=== PATIENT | female | born 1990 | race American Indian/Alaskan Native ===

== ENCOUNTER 2017-09-14 08:53 | Emergency (ER) | payer SELFPAY ==
[2017-09-14 10:06] LABS: Basophils % (Auto) 0.6 % (0.0-1.8); Eosinophils # (Auto) 0.1 K/mm3 (0.0-0.4); Eosinophils % (Auto) 2.4 % (0.0-4.3); Hemoglobin 10.7 gm/dl (10.1-14.3); Lymphocytes % (Auto) 36.4 % (13.4-35.0); Mean Corpuscular HGB Conc 32 % (30-34); Mean Corpuscular Hemoglobin 27 pg (28-32); Mean Corpuscular Volume 83 fl (79-97); Monocytes # (Auto) 0.4 K/mm3 (0.0-0.8); Monocytes % (Auto) 6.6 % (0.0-7.3); Platelet Count 345 K/mm3 (140-440); Red Blood Count 3.96 M/mm3 (3.65-5.03); Red Cell Distribution Width 17.7 % (13.2-15.2)
[2017-09-14 10:23] LABS: Alanine Aminotransferase 13 units/L (7-56); Albumin 4.3 g/dL (3.9-5); BUN/Creatinine Ratio 10; Blood Urea Nitrogen 6 mg/dL (7-17); Calcium 8.8 mg/dL (8.4-10.2); Hemolysis Index 7
[2017-09-14 10:25] LABS: Bilirubin,Urine NEG (Negative); Blood,Urine LG (Negative); Color,Urine Red (Yellow); Nitrite,Urine NEG (Negative); Protein,Urine <15 mg/dL mg/dL (Negative); Urobilinogen,Urine < 2.0 mg/dL (<2.0)
[2017-09-14 10:26] LABS: RBC,Urine > 182.0 /HPF (0.0-6.0)
--- NOTE | 2017-09-14 12:02 | Emergency Department Report ---
Blank Doc - Documentation Documentation: Patient is a 27-year-old Bonnie female who is coming in with 2 days of left sided flank discomfort. Patient is on her menses. The patient states she' s had some discomfort with her bowel movements and states that her stool has a very small in caliber. Patient states she is straining to have bowel movements however the stool is does not appear hard. Patient denies any other symptoms there is no dysuria hematuria nausea vomiting or weight loss. Patient is worried that she may have colon cancer. Patient most likely has some residual stool present in the sigmoid colon and rectum. I will order an x-ray just to rule out any abnormalities and patient will be followed with P
--- NOTE | 2017-09-14 12:06 | Emergency Department Report ---
ED Abdominal Pain HPI - General Chief Complaint: Abdominal Pain Stated Complaint: ABD PAIN Time Seen by Provider: 09/14/17 11:55 Source: patient, family Mode of arrival: Ambulatory Limitations: No Limitations - History of Present Illness Initial Comments: Patient is a 27-year-old Bonnie female who is coming in with 2 days of left sided flank discomfort. Patient is on her menses. The patient states she' s had some discomfort with her bowel movements and states that her stool has a very small in caliber. Patient states she is straining to have bowel movements however the stool is does not appear hard. Patient denies any other symptoms there is no dysuria hematuria nausea vomiting or weight loss. Patient is worried that she may have colon cancer.l She says she is worried about colon cancer. Patient blood pressure is elevated and she says she is on losartan but she did not take it today. She says she has anxiety about her health and she is a hypochondriac. Denies any nausea or vomiting. Denies any abdominal pain. It was stated on triage note the patient was having pain in her left lower quadrant but patient said the pain is in her left flank and it's 4-10 and dull. No medication taken. She says her diet is not the best and that she goes everyday but she noted for the last 2 days that her stool has changed. Patient denies any personal history of cancer or family history of cancer. Denies any hemorrhoids. Denies any fever or chills. Denies any urinary burning but she says she has some urgency and frequency. MD Complaint: flank pain, other (change in stool) Onset/Timin -: days(s) Location: L flank Radiation: none Migration to: no migration Severity scale (0 -10): 4 Quality: dull Consistency: intermittent Improves With: nothing Worsens With: nothing Context: other (unknown. She thinks she has colon cancer) Associated Symptoms: other (urinary urgency and frequency). denies: nausea, vomiting, diarrhea, fever, chills, constipation, dysuria, hematemesis, hematochezia, melena, hematuria, anorexia, syncope Treatments Prior to Arrival: other (none) - Related Data LMP Date: 09/14/17 Previous Rx's Medication Instructions Recorded Last Taken Type ALBUTEROL Inhaler [ProAir HFA 2 puff IH QID PRN #1 inhalation 12/04/13 Unknown Rx Inhaler] Azithromycin [Zithromax Z-BENTON] 250 mg PO DAILY #6 tablet 12/04/13 Unknown Rx Prednisone [Prednisone 10 mg 10 mg PO .TAPER #1 tab.ds.pk 12/04/13 Unknown Rx (6-Day Pack, 21 Tabs)] Nitrofurantoin Monohyd/M-Cryst 100 mg PO Q12H 5 Days #10 capsule 09/14/17 Unknown Rx [Macrobid 100 mg Capsule] Allergies Allergy/AdvReac Type Severity Reaction Status Date / Time ipratropium bromide Allergy Shortness Verified 12/04/13 15:05 [From Atrovent] of Breath peanut Allergy Itching Verified 12/04/13 15:05 shellfish derived Allergy Rash Verified 12/04/13 15:05 Sulfa (Sulfonamide Allergy Hives Verified 12/04/13 15:05 Antibiotics) ED Review of Systems ROS: Stated complaint: ABD PAIN Other details as noted in HPI Comment: All other systems reviewed and negative Constitutional: no symptoms reported ENT: denies: throat pain, congestion Respiratory: no symptoms reported Cardiovascular: denies: chest pain, palpitations, dyspnea on exertion, edema, syncope, paroxysmal nocturnal dyspnea Gastrointestinal: other (left flank pain). denies: abdominal pain, nausea, vomiting, diarrhea, constipation, hematemesis, melena, hematochezia Genitourinary: urgency, frequency, hematuria (patient is on her menses). denies : dysuria, discharge, abnormal menses Musculoskeletal: back pain. denies: joint swelling, arthralgia, myalgia Skin: denies: rash Neurological: denies: headache, abnormal gait, vertigo Psychiatric: anxiety ED Past Medical Hx - Past Medical History Previous Medical History?: Yes Hx Hypertension: Yes Hx Asthma: Yes - Surgical History Past Surgical History?: Yes Additional Surgical History: c section oct 02 - Family History Family history: hypertension - Social History Smoking Status: Never Smoker Substance Use Type: None - Medications Home Medications: Home Medications Medication Instructions Recorded Confirmed Last Taken Type ALBUTEROL Inhaler [ProAir HFA 2 puff IH QID PRN #1 inhalation 12/04/13 Unknown Rx Inhaler] Azithromycin [Zithromax Z-BENTON] 250 mg PO DAILY #6 tablet 12/04/13 Unknown Rx Prednisone [Prednisone 10 mg 10 mg PO .TAPER #1 tab.ds.pk 12/04/13 Unknown Rx (6-Day Pack, 21 Tabs)] Nitrofurantoin Monohyd/M-Cryst 100 mg PO Q12H 5 Days #10 capsule 09/14/17 Unknown Rx [Macrobid 100 mg Capsule] ED Physical Exam - General Limitations: No Limitations General appearance: alert, anxious (mild) - Head Head exam: Present: atraumatic, normocephalic, normal inspection - Eye Eye exam: Present: normal appearance, PERRL, EOMI Pupils: Present: normal accommodation - ENT ENT exam: Present: normal exam, normal orophraynx, mucous membranes moist - Neck Neck exam: Present: normal inspection, full ROM. Absent: tenderness, meningismus, lymphadenopathy, thyromegaly - Respiratory Respiratory exam: Present: normal lung sounds bilaterally. Absent: respiratory distress, chest wall tenderness, accessory muscle use - Cardiovascular Cardiovascular Exam: Present: regular rate, normal rhythm, normal heart sounds, other (BP elevated). Absent: systolic murmur, diastolic murmur - GI/Abdominal GI/Abdominal exam: Present: soft. Absent: distended, tenderness, guarding, rebound, rigid, normal bowel sounds, organomegaly, mass, bruit, pulsatile mass, hernia - Extremities Exam Extremities exam: Present: normal inspection, full ROM, normal capillary refill , other (no clubbing, cyanosis or edema. Positive pulses all extremities and no neurovascular compromise). Absent: tenderness, pedal edema, joint swelling, calf tenderness - Back Exam Back exam: Present: normal inspection, full ROM, other (ambulates without any difficulties). Absent: tenderness, CVA tenderness (R), CVA tenderness (L), muscle spasm, paraspinal tenderness, vertebral tenderness, rash noted - Neurological Exam Neurological exam: Present: alert, oriented X3, normal gait, reflexes normal. Absent: motor sensory deficit - Psychiatric Psychiatric exam: Present: normal affect, normal mood - Skin Skin exam: Present: warm, dry, intact, normal color. Absent: rash ED Course Vital Signs 09/14/17 09/14/17 09:16 14:06 Temperature 98.7 F 97.9 F Pulse Rate 94 H 89 Respiratory 18 14 Rate Blood Pressure 173/114 Blood Pressure 154/95 [Left] O2 Sat by Pulse 100 99 Oximetry - Reevaluation(s) Reevaluation #1: 09/14/17 14:41 Patient here concerned about colon cancer and has anxiety but helped which is something that is chronic. She had uneventful ED stay. Blood pressure is better and she will take her medication when she goes home. ED Medical Decision Making - Lab Data Result diagrams: 09/14/17 09:40 09/14/17 09:37 Lab Results 09/14/17 09/14/17 09/14/17 Range/Units 09:37 09:40 Unknown WBC 5.5 (4.5-11.0) K/mm3 RBC 3.96 (3.65-5.03) M/mm3 Hgb 10.7 (10.1-14.3) gm/dl Hct 33.0 (30.3-42.9) % MCV 83 (79-97) fl MCH 27 L (28-32) pg MCHC 32 (30-34) % RDW 17.7 H (13.2-15.2) % Plt Count 345 (140-440) K/mm3 Lymph % (Auto) 36.4 H (13.4-35.0) % [place] % (Auto) 6.6 (0.0-7.3) % Eos % (Auto) 2.4 (0.0-4.3) % Baso % (Auto) 0.6 (0.0-1.8) % Lymph # 2.0 (1.2-5.4) K/mm3 [place] # 0.4 (0.0-0.8) K/mm3 Eos # 0.1 (0.0-0.4) K/mm3 Baso # 0.0 (0.0-0.1) K/mm3 Seg Neutrophils % 54.0 (40.0-70.0) % Seg Neutrophils # 3.0 (1.8-7.7) K/mm3 Sodium 141 (137-145) mmol/L Potassium 3.7 (3.6-5.0) mmol/L Chloride 103.9 (98-107) mmol/L Carbon Dioxide 24 (22-30) mmol/L Anion Gap 17 mmol/L BUN 6 L (7-17) mg/dL Creatinine 0.6 L (0.7-1.2) mg/dL Estimated GFR > 60 ml/min BUN/Creatinine Ratio 10 % Glucose 109 H (65-100) mg/dL Calcium 8.8 (8.4-10.2) mg/dL Total Bilirubin 0.30 (0.1-1.2) mg/dL AST 15 (5-40) units/L ALT 13 (7-56) units/L Alkaline Phosphatase 65 (35-129) units/L Total Protein 7.5 (6.3-8.2) g/dL Albumin 4.3 (3.9-5) g/dL Albumin/Globulin Ratio 1.3 % Urine Color Red (Yellow) Urine Turbidity Clear (Clear) Urine pH 7.0 (5.0-7.0) Ur Specific [place] 1.009 (1.003-1.030) Urine Protein <15 mg/dl (Negative) mg/dL Urine Glucose (UA) Neg (Negative) mg/dL Urine Ketones Neg (Negative) mg/dL Urine Blood Lg (Negative) Urine Nitrite Neg (Negative) Urine Bilirubin Neg (Negative) Urine Urobilinogen < 2.0 (<2.0) mg/dL Ur Leukocyte Esterase Neg (Negative) Urine WBC (Auto) 56.0 H (0.0-6.0) /HPF Urine RBC (Auto) > 182.0 (0.0-6.0) /HPF U Epithel Cells (Auto) 2.0 (0-13.0) /HPF Urine culture pending - Radiology Data Radiology results: report reviewed X-ray abdominal series reveals normal exam - Medical Decision Making ED course: She can hear word about her health and think she is colon cancer because she has change in her stool from normal to thin stool. Denies any hard stool or constipation. Denies any blood in her stool. No personal history of cancer or family history of cancer. Patient says that she is worried because she is a hypochondriac. Physical physical findings were normal abdominal exam. Blood pressure is stable and patient will take her blood pressure medication when she goes home. I discussed patient that she is low risk for colon cancer based on her history alone and her physical exam does not show any signs of any abnormality. I discussed with her that she needs to follow up with a primary care physician which she does not have once I told her that she needs to go to [facility] to establish primary care to manage her blood pressure on also for evaluation and to voice her concerns and together they can make a decision regarding whether or not she needs a colonoscopy. Discussed with her diet that is high in fiber and to increase her fluid intake. Patient states that she does not eat any fruits or vegetables. I discussed her lab work to include urinalysis which shows that patient has large amount of blood from being on her menses but also she has increased white blood cell in her urine without any bacteria or leukocyte Estrace. Patient was understanding of discharge instructions and need to follow-up. Discharge home with prescription for Bactrim DS and urine culture sent and pending. Critical care attestation.: If time is entered above; I have spent that time in minutes in the direct care of this critically ill patient, excluding procedure time. ED Disposition Clinical Impression: Anxiety about health, Left flank pain, Elevated blood pressure reading with diagnosis of hypertension, Urine frequency, Urinary urgency Cystitis, acute Qualifiers: Hematuria presence: with hematuria Qualified Code(s): N30.01 - Acute cystitis with hematuria Disposition: TO HOME OR SELFCARE Is pt being admited?: No Does the pt Need Aspirin: No Condition: Stable Instructions: Hypertension (ED), Flank Pain (ED), Anxiety (ED), Urinary Tract Infection in Women (ED), High Fiber Diet (ED) Additional Instructions: Please see discharge instruction on high fiber diet and make sure you increase your fruits and veggies and your diet. Please increase your water intake You can add some Metamucil which is [id number] you can mix with water or orange juice to give bulk to use stool Please follow up with [facility] for primary care visit as you do not have a primary care and need a primary care doctor to manage her high blood pressure and also to evaluate you for concerns about stool Please keep a lot of the blood pressure and take to primary care visit with you. please remember to take your blood pressure medication when you. Gets home Take Bactrim DS for urinary tract infection and this medication is free at [facility] ([facility] Prescriptions: Nitrofurantoin Monohyd/M-Cryst [Macrobid 100 mg Capsule] 100 mg PO Q12H 5 Days # 10 capsule Referrals: PRIMARY CARE, [Primary Care Provider] - 3-5 Days Forms: Work/School Release Form(ED)
[2017-09-14 14:08] VITALS: BP 154/95
--- NOTE | 2017-09-14 14:19 | XRay Report ---
SUPINE KUB: Constipation. The abdominal gas pattern is unremarkable. No masses or organomegaly is identified and there is no gross evidence of free air or fluid. No significant soft tissue calcifications are noted. IMPRESSION: Normal study.
== END 2017-09-14 15:11 | disposition home or self-care (01) ==
LOC: ED 08:53
DX: N30.00 Acute cystitis without hematuria (principal); I10 Essential (primary) hypertension; R35.0 Frequency of micturition; R39.15 Urgency of urination; F41.9 Anxiety disorder, unspecified; J45.909 Unspecified asthma, uncomplicated; Z91.013 Allergy to seafood; Z88.1 Allergy status to other antibiotic agents; Z91.010 Allergy to peanuts
CPT/HCPCS: 36415; 74018; 80053; 81001; 85025; 87086; 99283